=== PATIENT | female | born 1970 | race Caucasian/White ===

== ENCOUNTER → 2024-03-12 09:12 | Outpatient (CLI) | payer OTHER, SELFPAY ==
--- NOTE | 2024-03-12 | DI.CT.S_ITS ---
PROCEDURE: CT LUNG LOW DOSE SCREENING INDICATIONS: LUNG CANCER SCREENING TECHNIQUE: Noncontrast 2.0-2.5 mm thick sections acquired from the pulmonary apices to the posterior costophrenic angles. 7 mm thick axial MIP, and 5 mm coronal and sagittal reformats were then acquired. For radiation dose reduction, the following was used: automated exposure control, adjustment of mA and/or kV according to patient size. COMPARISON: None. FINDINGS: Image quality: Diagnostic. Lower Neck: No enlarged lymph nodes. Thyroid: No thyroid nodules which require sonographic follow up, per consensus guidelines. Axillae: No enlarged lymph nodes. Chest Wall: Unremarkable. Bones: Unremarkable. Lungs and Pleura: No pneumothorax or pleural effusions. 1.4 x 0.8 cm ground-glass nodule in the left upper lobe (series 3, image 86). Heart: Heart size is normal. No pericardial effusion. Marked LAD calcifications for age. Thoracic Vessels: The aorta and pulmonary arteries demonstrate normal size. Mediastinum and [place]: No enlarged lymph nodes. Esophagus: No wall thickening. No hiatal hernia. Upper Abdomen: Visualized upper abdomen solid organs and bowel loops appear normal. IMPRESSION: No suspicious pulmonary nodules. LUNG-RADS 2; continued annual screening, if eligible. Clinically Significant Non-pulmonary Findings: Marked coronary artery calcifications for age. Correlate with risk factors and advise counseling. Dictated by: Gordon Tiwari M.D. on 03/12/2024 at 9:49 Approved by: Gordon Tiwari M.D. on 03/12/2024 at 9:53
== END ==
PROVIDERS: PCP Student in an Organized Health Care Education/Training Program; Referring Provider Student in an Organized Health Care Education/Training Program; Visit Provider Student in an Organized Health Care Education/Training Program
DX: Z87.891 Personal history of nicotine dependence (principal); Z12.2 Encounter for screening for malignant neoplasm of respiratory organs; I25.10 Atherosclerotic heart disease of native coronary artery without angina pectoris
CPT/HCPCS: 71271

== ENCOUNTER → 2024-07-14 13:38 | Outpatient (CLI) | payer OTHER, SELFPAY ==
--- NOTE | 2024-07-14 | DI.ECHO.S_ITS ---
[place] [facility]---------+ [facility] : : [address] : : [place] : : [id number] : : Phone: [phone] Echocardiogram Report + + :Name: NAOMIE CLARK Study Date: 07/14/2024 Height: 62 in : :[facility] ReadingLocation: Weight: 241 lb : : Gender: Female BSA: 2.1 m2 : :: 1970 Age: 53 yrs BP: 126/95 mmHg: :Reason For Study: CAD : :Ordering Physician: SCOTT DO Performed By: Inna Degroot : :Referring: SCOTT DO : + + Interpretation Summary 1. The left ventricular contractility is normal. Estimated ejection fraction is greater than 55% with no segmental wall motion abnormalities. No LVH. Normal diastolic function. 2. The right ventricle contractility is normal. 3. All cardiac chambers are of normal size. 4. No significant valvular abnormalities. 5. No obvious intracardiac shunts. 6. No obvious intracardiac masses nor thrombi. 7. No hemodynamically significant pericardial effusion. 8. Low right-sided filling pressures. Conclusion: Normal biventricular function with no significant valvular nor structural abnormalities. Procedure: A two-dimensional transthoracic echocardiogram with color flow and Doppler was performed. The study quality was technically adequate. There is no prior echocardiogram noted for this patient. The patient was in sinus rhythm with heart rates between 61-82 bpm during the exam. Left Ventricle: The left ventricle is normal in size and wall thickness. The ejection fraction is estimated to be 55-60%. Right Ventricle: The right ventricle is normal in size and function. Atria: The left atrial size is normal. Right atrial size is normal. There is no Doppler evidence for an interatrial shunt. Mitral Valve: The mitral valve is normal in structure and function. There is trace mitral regurgitation. Aortic Valve: The aortic valve is not well visualized. The aortic valve is grossly normal. There is no aortic valve stenosis. No aortic regurgitation is present. Tricuspid Valve: The tricuspid valve is normal in structure and function. No tricuspid regurgitation. Pulmonary artery pressures cannot be estimated because of the lack of a measurable TR jet velocity. Pulmonic Valve: The pulmonic valve is not well visualized. There is no pulmonic valvular regurgitation. Great Vessels: The aortic root is normal size. The dimensions of the ascending aorta are normal. The IVC is of normal diameter and collapses greater than 50% with a sniff. This suggests a low right atrial pressure of 3 mm Hg. Pericardium/ Pleura There is no pericardial effusion. There is no pleural effusion. MMode/2D Measurements & Calculations LVIDd: 5.1 cm LVOT diam: 2.0 cm LVIDs: 3.4 cm Ao root diam: 3.1 cm FS: 32.4 % asc Aorta Diam: 2.8 cm IVSd: 0.78 cm Ao Arch Diam (Prox Trans): 2.8 cm LVPWd: 0.75 cm LV sandoval. diameter/BSA (cm/m^2): 2.4 LV sys. diameter/BSA (cm/m^2): 1.7 LA A2 area: 17.1 cm2 RA long axis: 4.6 cm LA A4 area: 15.5 cm2 RA area: 13.8 cm2 LA length (vol): 4.8 cm RA vol: 35.6 ml LA vol: 46.6 ml RA : 17.2 ml/m2 LA vol index: 22.5 ml/m2 IVC diam: 1.4 cm RVD1 (basal): 3.5 cm TAPSE: 2.1 cm Doppler Measurements & Calculations Ao V2 max: 165.0 cm/sec LVOT Max Junior: 102.9 cm/sec Ao V2 mean: 115.7 cm/sec LV V1 max P.2 mmHg Ao max P.9 mmHg LV V1 VTI: 25.3 cm Ao mean P.9 mmHg HAM(I,D): 2.1 cm2 Ao V2 VTI: 38.3 cm HAM(V,D): 2.0 cm2 sev ratio: 0.66 HAM indexed to BSA (cm^2/m^2): 1.0 MV E max junior: 79.1 cm/sec PA V2 max: 96.0 cm/sec MV A max junior: 49.5 cm/sec PA V2 mean: 68.0 cm/sec MV E/A: 1.6 PA mean P.1 mmHg Med Peak E' Junior: 12.0 cm/sec PA pr(Accel): 31.0 mmHg E/E' med: 6.6 Lat Peak E' Junior: 14.7 cm/sec E/E' lat: 5.4 E/e' average: 6.0 MV dec time: 0.21 sec SV(LVOT): 82.0 ml Reading Physician:
--- NOTE | 2024-07-16 05:19 | DI.NM.S_ITS ---
DATE OF SERVICE: 07/14/2024 PROCEDURE: Exercise treadmill stress test without imaging. ORDERING PROVIDER: Dr. Quintin Do INDICATIONS: The patient is a 53-year-old female recently diagnosed with breast cancer with coronary artery calcifications noted on chest CT who requires preoperative cardiovascular risk assessment. FINDINGS: 1. The patient was able to exercise for 6 minutes 38 seconds on a standard [place] protocol, suggesting [id number] reduced exercise capacity with an DEXTER of +12%, achieving 7.0 METS. 2. She had a normal heart rate and blood pressure response to exercise, achieving a maximum heart rate of 167 BPM (99% of her predicted maximum). 3. She had no chest discomfort or other anginal symptoms. 4. Her resting ECG shows sinus rhythm with normal ST segments. There are no significant ST-segment shifts or arrhythmias with stress. IMPRESSION: 1. Normal exercise treadmill stress test for ischemia. 2. No angina or arrhythmias with stress. 3. Mild to moderately reduced exercise capacity. Elida Goodwin - KO/jane/IMELDA doc#: [id number]/job#: [id number] dd: 07/14/2024 17:05:00 dt: 07/14/2024 17:40:00 DICTATING MD/COPIES TO: Ayaan Hou MD; Quintin Do MD COPIES MNE: [place];
== END ==
PROVIDERS: PCP Student in an Organized Health Care Education/Training Program; Referring Provider Internal Medicine; Visit Provider Internal Medicine
DX: Z01.810 Encounter for preprocedural cardiovascular examination (principal); I25.10 Atherosclerotic heart disease of native coronary artery without angina pectoris; D05.11 Intraductal carcinoma in situ of right breast; E78.5 Hyperlipidemia, unspecified
CPT/HCPCS: 93017; 93306

== ENCOUNTER → 2025-05-18 11:07 | Outpatient (CLI) | payer OTHER, SELFPAY ==
[2025-05-18 12:32] LABS: Blood Urea Nitrogen 11 mg/dL (7-17); Calcium 9.5 mg/dL (8.4-10.2); Carbon Dioxide 26 mmol/L (22-32); Chloride 106 mmol/L (98-107); Estimated Glomerular Filt Rate > 60 mL/min (>60); Glucose 98 mg/dL (70-99); HEMOLYSIS < 15 (0-50); Magnesium 1.9 mg/dL (1.6-2.3); Potassium 4.7 mmol/L (3.4-5.1); Sodium 140 mmol/L (137-145)
== END ==
PROVIDERS: PCP Student in an Organized Health Care Education/Training Program; Referring Provider Internal Medicine; Visit Provider Internal Medicine
DX: R94.31 Abnormal electrocardiogram [ECG] [EKG] (principal)
CPT/HCPCS: 36415; 80048; 83735